=== PATIENT | female | born 1970 | race American Indian/Alaskan Native ===

== ENCOUNTER 2021-10-27 14:41 | Inpatient (IN) | payer OTHER ==
--- NOTE | 2021-10-27 14:49 | Emergency Department Report ---
ED General Adult HPI - General Stated complaint: POSS STROKE/GENERAL WEAKNESS Time Seen by Provider: 10/27/21 14:42 - History of Present Illness Initial comments: patient presents with complaints of sudden onset of weakness on her left side that made her fall. did not lose consciousness in the process. Now has facial droop also with the left saided weakness. Denies ZARATE. - Related Data Allergies Allergy/AdvReac Type Severity Reaction Status Date / Time No Known Allergies Allergy Verified 10/27/21 15:44 ED Review of Systems ROS: Stated complaint: POSS STROKE/GENERAL WEAKNESS Other details as noted in HPI Comment: All other systems reviewed and negative Constitutional: denies: chills, fever ED Past Medical Hx - Past Medical History Previous Medical History?: No ED Physical Exam - General General appearance: alert, in no apparent distress - Head Head exam: Present: atraumatic, normocephalic - Eye Eye exam: Present: PERRL, EOMI - ENT ENT exam: Present: mucous membranes moist, other (L facial asymmetry; airway patent) - Neck Neck exam: Present: other (supple; no JVD) - Respiratory Respiratory exam: Present: other (good air entry, nml I:E, CTAB, no use of MESFIN) - Cardiovascular Cardiovascular Exam: Present: regular rate. Absent: rubs, gallop - GI/Abdominal GI/Abdominal exam: Present: soft, normal bowel sounds. Absent: distended, tenderness - Extremities Exam Extremities exam: Present: full ROM. Absent: tenderness - Back Exam Back exam: Present: full ROM. Absent: tenderness - Neurological Exam Neurological exam: Present: alert, oriented X3, other (L CN VII palsy affecting only the lower face; motor 2/5 in LUE and 4/5 in LLE; NIH 6) - Skin Skin exam: Present: warm, normal color ED Course Vital Signs 10/27/21 10/27/21 10/27/21 14:41 15:35 15:39 Pulse Rate 100 H 100 H Respiratory 18 Rate Blood Pressure 151/70 Blood Pressure 168/98 [Right] O2 Sat by Pulse 100 100 Oximetry 10/27/21 10/27/21 10/27/21 15:40 15:55 16:10 Pulse Rate 102 H 99 H 105 H Respiratory 18 16 18 Rate Blood Pressure 148/75 148/80 Blood Pressure 151/79 161/79 143/86 [Right] O2 Sat by Pulse 98 18 L 98 Oximetry 10/27/21 10/27/21 10/27/21 16:25 16:40 16:55 Pulse Rate 98 H 100 H 97 H Respiratory 17 17 17 Rate Blood Pressure Blood Pressure 153/92 161/90 145/65 [Right] O2 Sat by Pulse 99 99 100 Oximetry 10/27/21 10/27/21 10/27/21 17:10 17:25 17:40 Pulse Rate 99 H 97 H 101 H Respiratory 18 17 18 Rate Blood Pressure Blood Pressure 135/86 141/78 154/75 [Right] O2 Sat by Pulse 99 99 99 Oximetry 10/27/21 10/27/21 17:55 18:00 Pulse Rate 99 H 98 H Respiratory 99 H 18 Rate Blood Pressure Blood Pressure 154/68 156/71 [Right] O2 Sat by Pulse 98 99 Oximetry - Reevaluation(s) Reevaluation #1: 10/27/21 17:14 Patient's weakness in L arm and leg resolved. L facial droop almost totally resolved. NIH only 1 for mild asymmetry in lower face on smiling. ED Medical Decision Making - Lab Data Result diagrams: 10/27/21 15:08 10/27/21 15:08 - Medical Decision Making Dr. Roger ([email or web address]) consulted. She agrees patient needs tPA. Patient received tPA. Critical care time in (mins) excluding proc time.: 50 Critical care attestation.: If time is entered above; I have spent that time in minutes in the direct care of this critically ill patient, excluding procedure time. ED Disposition Clinical Impression: Acute ischemic stroke Disposition: ADMITTED INPATIENT Is pt being admited?: Yes Does the pt Need Aspirin: No Condition: Stable Time of Disposition: 17:00 (Patient admitted to Dr. Daigle (sign out was given by me to the admitting physician))
[2021-10-27] MEDS ORDERED: ALTEPLASE 100 MG INJ KIT ONE (14:53)
[2021-10-27] MEDS ORDERED: ALTEPLASE 100 MG INJ KIT IV ONE ×2 (15:10→15:45)
[2021-10-27] MEDS ORDERED: SODIUM CHLORIDE 0.9% 50 ML IVPB IV ONE (15:10)
--- NOTE | 2021-10-27 15:20 | Cat Scan Report ---
CT HEAD WITHOUT CONTRAST INDICATION / CLINICAL INFORMATION: stroke. Left facial droop. TECHNIQUE: Axial imaging performed from the skull apex through the skull base without the use of cont rast. Sagittal and coronal reformatted images. All CT scans at this location are performed using CT dose reduction for ALARA by means of automated exposure control. COMPARISON: None available. FINDINGS: CEREBRAL PARENCHYMA: No significant abnormality. No acute territorial infarct. HEMORRHAGE: None. EXTRA-AXIAL SPACES: Normal in size and morphology for the patient's age. VENTRICULAR SYSTEM: Normal in size and morphology for the patient's age. MIDLINE SHIFT OR HERNIATION: None. CEREBELLUM / BRAINSTEM: No significant abnormality. CALVARIUM: No significant abnormality. ORBITS: Normal as visualized. PARANASAL SINUSES / MASTOID AIR CELLS: There appears to be an ectopic 2 cysts in the left maxillary s inus which is partially imaged. Otherwise the sinuses are clear. SOFT TISSUES of HEAD: No significant abnormality. ADDITIONAL FINDINGS: None. IMPRESSION: No acute intracranial abnormality. No evidence for hemorrhage or large area of acute ischemia this ti me. Ectopic tooth in the left maxillary sinus which is partially imaged. CODE STROKE: Time of Communication (LIFE SCIENCE RESEARCH ASSISTANT/CDT): 1410 hours Licensed Practitioner Receiving Report: Dr. Santillan Signer Name: Kory Coates Jr, MD Signed: 10/27/2021 3:15 PM Workstation Name: [id number]
--- NOTE | 2021-10-27 15:37 | Cat Scan Report ---
CTA head with intravenous contrast CLINICAL HISTORY: stroke TECHNIQUE: 0.625 mm thick contiguous axial scans were obtained from the skull base to the skull vertex during r apid bolus administration of intravenous contrast material. Multiplanar reconstructions were produced in the coronal and sagittal planes. In addition 3 plane MIP instructions were produced and reviewed for this report. The axial source images and reconstructed images were reviewed for this report. CONTRAST DOSE REPORT: Omnipaque 350: 100 ml administered intravenously. All CT scans at this location are performed using CT dose reduction for ALARA by means of automated e xposure control. FINDINGS: Internal carotid arteries:Renzo, cavernous, opthalmic, clinoid and supraclinoid segments of the ICAs have an unremarkable appearance. Middle cerebral arteries:Normal and symmetrical M1 segments of the middle cerebral arteries are demon strated. No abnormalities are seen on evaluation of the insular or opercular branches. Anterior cerebral arteries:Bilaterally symmetrical A1 segments are demonstrated. No abnormalities are seen along the course of the A2 segments or their visualized pericallosal branches. An anterior comm unicating artery is not identified. Vertebral arteries:Bilaterally symmetrical vertebral arteries are demonstrated. Both vertebral arteri es contribute to the basilar artery origin. Basilar artery:Basilar artery has an unremarkable appearance. Posterior cerebral arteries:Bilaterally symmetrical posterior cerebral arteries are identified. Smal l bilateral posterior communicating arteries are observed. [place] of Power:Not intact. see above. Dural sinuses: Dural venous sinuses are well demonstrated on this exam. There is no evidence of dural sinus thrombosis. IMPRESSION: 1. No indication of intercranial stenosis or large vessel occlusion. CTA neck without and with intravenous contrast material CLINICAL HISTORY: stroke TECHNIQUE: Following acquisition of a timing bolus 0.625 mm thick contiguous axial scans were obtained from aort ic arch to the skull base during rapid bolus intravenous contrast infusion. In addition to evaluation of axial source images multiplanar reconstructions were produced and reviewed for this report. 3 edmond ne MIP reconstructions were produced and reviewed. Contrast dose report: Omnipaque 300: 100 ml, administered intravenously All CT examinations performed at this facility utilize modulated dose reduction, iterative reconstruc tion or weight-based dosing, as appropriate, to obtain a radiation dose which is as low as can reason ably be achieved. FINDINGS: Thoracic aorta:No abnormalities are identified along the course of the thoracic aorta..The origins of the great vessels have an unremarkable appearance. Brachiocephalic artery, left common carotid arter y origin and left subclavian artery all have an unremarkable appearance. Right carotid artery: There is a thin, web like abnormality projecting into the posterior aspect of t he right carotid bulb. This is associated with a short segment 50% stenosis based on NASCET like crit eria. Right common carotid artery and cervical portions of the right internal carotid artery have a n ormal appearance. Left carotid artery: No abnormalities are noted along the course of the left common carotid artery, a t the left carotid bifurcation or along the course of the cervical segments of the LICA. Posterior circulation:The vertebral arteries have an unremarkable appearance. Both vertebral arteries contribute to the basilar artery origin. The basilar artery has an unremarkable appearance. The degree of stenosis, if any, is determined utilizing NASCET like criteria. In this case there is a short segment 50% stenosis at the right carotid bulb. The laryngeal airway is narrowed from about the level of the inferior margin of the hyoid bone to the level of the false cords. This could be secondary to supraglottitis. Correlation with clinical asses sment of the adequacy of the patient's airway is advised. Additionally noted is asymmetry of the piri form sinuses with effacement of the left piriform sinus. Correlation with ENT evaluation is suggested . Evaluation of the nonvascular soft tissue structures reveal no additional abnormality. There is no in dication of cervical lymphadenopathy. Visualized portions of the parotid glands and the submandibular salivary glands have a normal appearance. Thyroid gland has a normal appearance. Evaluation of the l silverio apices reveals no evidence of lung nodule or infiltrate. Evaluation of the cervical spine revealed no significant abnormalities. IMPRESSION: 1. Short segment weblike stenosis at the right carotid bulb where a 50% narrowing is observed based o n NASCET like criteria. 2. Laryngeal airway appears narrowed from the inferior margin of the hyoid bone to the level of the f alse cords. Clinical assessment regarding the adequacy of the patient's airway is advised. Signer Name: Rigoberto Johnson MD Signed: 10/27/2021 3:32 PM Workstation Name: [id number]
[2021-10-27 15:46] LABS: Hematocrit 42.6 % (30.3-42.9); Hemoglobin 13.9 gm/dl (10.1-14.3); Mean Corpuscular HGB Conc 33 % (30-34); Mean Corpuscular Volume 90 fl (79-97); Platelet Count 454 K/mm3 (140-440); Red Blood Count 4.74 M/mm3 (3.65-5.03); Red Cell Distribution Width 13.9 % (13.2-15.2)
[2021-10-27 15:53] LABS: Basophils # (Auto) 0.1 K/mm3 (0.0-0.1); Basophils % (Auto) 0.9 % (0.0-1.8); Eosinophils # (Auto) 0.1 K/mm3 (0.0-0.4); Eosinophils % (Auto) 0.5 % (0.0-4.3); Lymphocytes # (Auto) 3.5 K/mm3 (1.2-5.4); Monocytes # (Auto) 0.9 K/mm3 (0.0-0.8); Monocytes % (Auto) 7.9 % (0.0-7.3)
[2021-10-27 15:54] LABS: INR 1.1 (0.87-1.13)
[2021-10-27 15:55] LABS: Partial Thromboplastin Time 29.7 Sec. (24.2-36.6)
--- NOTE | 2021-10-27 17:16 | XRay Report ---
CHEST 1 VIEW 10/27/2021 4:55 PM INDICATION / CLINICAL INFORMATION: stroke. COMPARISON: None available. FINDINGS: SUPPORT DEVICES: None. HEART / MEDIASTINUM: No significant abnormality. LUNGS / PLEURA: No significant pulmonary or pleural abnormality. No pneumothorax. ADDITIONAL FINDINGS: No significant additional findings. IMPRESSION: 1. No acute findings. Signer Name: Edwar Mcmahon DO Signed: 10/27/2021 5:11 PM Workstation Name: [id number]
[2021-10-27 17:44] LABS: Alanine Aminotransferase 8 units/L (7-56); Albumin 4.3 g/dL (3.9-5); Blood Urea Nitrogen 13 mg/dL (7-17); Calcium 9.3 mg/dL (8.4-10.2); Hemolysis Index 194
[2021-10-27 17:48] LABS: BUN/Creatinine Ratio 19
--- NOTE | 2021-10-27 18:13 | Emergency Department Report ---
Blank Doc - Documentation Documentation: [facility] Consult Note # Demographics Consult Type: Acute Stroke Level 1 (0-4.5 hrs) Patient Location: Emergency Room First Name: Arlene Last Name: Danial Date of : 1970 Age: 51 Gender: Female Facility: [facility] Time of Initial Page ( Time): 10/27/2021, 14:38 Time of Return Call ( Time): 10/27/2021, 14:38 # HPI History: 1345 fell, having left sided weakness Possible Thrombolytic candidate: not on warfarin or NOACs no intracranial hemorrhage history no recent major surgery no known active major internal bleeding no known blood disorders # Scores Time of exam and NIHSS (): 10/27/2021, 14:38 Level of Consciousness 1a: [0] = Alert; keenly responsive LOC Questions 1b: [0] = Answers both questions correctly LOC Commands 1c: [0] = Performs both tasks correctly Best Gaze 2: [0] = Normal Visual 3: [0] = No visual loss Facial Palsy 4: [2] = Partial paralysis Motor Arm Left 5a: [4] = No movement Motor Arm Right 5b: [0] = No drift Motor Leg Left 6a: [1] = Drift Motor Leg Right 6b: [0] = No drift Limb Ataxia 7: [0] = Absent Sensory 8: [0] = Normal Best Language 9: [0] = No aphasia Dysarthria 10: [0] = Normal Extinction and Inattention 11: [0] = No abnormality NIHSS Total: 7 # PMH-FH-SH Past Medical History: denies Medications: denies # Data Head CT: no bleed preliminary read # Assessment Impression: Ischemic Stroke (Acute) # Plan Thrombolytic/Intervention: IV thrombolytic and possible IA candidate Possible IA Candidate: signs and symptoms of LVO CTA pending Time IV Thrombolytic Recommended (): 10/27/2021, 14:42 Blood Pressure Management: nicardipine labetolol Target Blood Pressure: SBP < 180 DBP < 105 Labs: hemoglobin A1c lipid panel Imaging: (urgency: STAT): CT Angiogram Head and CT Angiogram Neck AND call back with results if abnormal Imaging: (urgency: routine): MRI Brain without contrast Diagnostic Test: echo without bubble study Therapy/Evaluation: NPO until swallow evaluation PT/OT evaluation speech/swallow consultation Medication: start statin with goal of LDL < 70 DVT Prophylaxis: SCD Thrombolytic Administration Recommendations: I reviewed the risks/benefits/alternatives of IV thrombolytic therapy with the p atient. They understand there is potential of life threatening hemorrhage from IV thrombolysis. I stated that I believe benefits outweighs risk. They wish to proceed with IV thrombolytic therapy. I have collected independent history specific to time last normal or last known well. We have collaborated with the ED provider and at this time, we have the most current timeline with the information that is available. BP goal< 180/105 for 24hrs post Thrombolytic administration Use Labetolol 10-20mg IV prn or Nicardipine gtt to maintain BP parameters No antiplatelets or anticoagulants for next 24 hrs unless indicated for emergent IA procedure or other life threatening situation ICU admission Call back if there is any decline in neurological condition The patient provided verbal consent to treatment with thrombolytics after the above was discussed. Witnesses to this conversation were Other: LDL < 70 If patient has any neurological deterioration please call me back immediately permissive hypertension telemetry monitoring I have discussed my recommendations with the referring provider Disposition: admit # Logistics Telemedicine: Interactive 2 way audio and visual telecommunication technology was utilized during this visit
[2021-10-27] MEDS ORDERED: MORPHINE 2 MG/1 ML INJ IV PRN (23:38)
[2021-10-27] MEDS ORDERED: ONDANSETRON 4 MG/2 ML INJ IV PRN (23:38)
[2021-10-27] MEDS ORDERED: oxyCODONE /ACETAMINOPHEN 5-325MG TAB PO PRN (23:38)
[2021-10-27] MEDS ORDERED: ACETAMINOPHEN 325 MG TAB PO PRN (23:38)
[2021-10-27] MEDS ORDERED: METOCLOPRAMIDE 10 MG/2 ML INJ IV PRN (23:38)
--- NOTE | 2021-10-27 23:38 | History and Physical Report ---
History of Present Illness Date of examination: 10/27/21 Date of admission: 10/27/2021 Chief complaint: Left-sided weakness for 1-1/2-hour History of present illness: 51-year-old -[place] female with no significant past medical history comes in for left-sided acute onset weakness for the last 1-1/2 hours. Not able to move her left upper extremity and left lower extremity. Also has facial droop and dysarthria. No nasal regurgitation of fluids. No ataxia. Unable to walk because of the left-sided weakness. Code stroke was initiated. tPA was given in the emergency room. Because of the patient being within the time. Post tPA patient had remarkable improvement with resolution of weakness in the left upper extremity and left lower extremity. Slight weakness present. - Past Medical History --Previous Medical History?: No - past surgical history -- No -family history - -No social history --No Review of Systems ROS: Stated complaint: POSS STROKE/GENERAL WEAKNESS Other details as noted in HPI Comment: All other systems reviewed and negative Constitutional: denies: chills, fever Medications and Allergies Allergies Allergy/AdvReac Type Severity Reaction Status Date / Time No Known Allergies Allergy Verified 10/27/21 15:44 Exam - Constitutional Vitals: Temp Pulse Resp BP Pulse Ox 98 H 18 111/72 100 10/27/21 19:00 10/27/21 19:00 10/27/21 19:00 10/27/21 19:00 General appearance: Present: no acute distress, well-nourished - EENT Eyes: Present: PERRL ENT: hearing intact, clear oral mucosa - Neck Neck: Present: supple, normal ROM - Respiratory Respiratory effort: normal Respiratory: bilateral: CTA - Cardiovascular Heart rate: 78 Rhythm: regular Heart Sounds: Present: S1 & S2. Absent: rub, click - Extremities Extremities: pulses symmetrical, No edema Peripheral Pulses: within normal limits - Abdominal General gastrointestinal: Present: soft, non-tender, non-distended, normal bowel sounds Female genitourinary: Present: normal - Integumentary Integumentary: Present: clear, warm, dry - Musculoskeletal Musculoskeletal: gait normal, strength equal bilaterally - Psychiatric Psychiatric: appropriate mood/affect, intact judgment & insight - Neurologic Neurologic: CNII-XII intact, focal deficits (Left hemiplegia which is improved), moves all extremities, gait normal (Could not walk initially, patient may be able to walk out of the clinic. On resolution of symptoms) - Allied Health Allied health notes reviewed: nursing, case management HEART Score - HEART Score History: Slightly suspicious Age: 45-65 Risk factors: No known risk factors Troponin: Troponin T < 0.010 ng/mL (0.00-0.029) 10/27/21 15:08 Troponin: < normal limit - Critical Actions Critical Actions: 0-3 pts:0.9-1.7%risk of adverse cardiac event.Candidate for discharge Results - Labs CBC & Chem 7: 10/28/21 04:05 10/28/21 04:05 Labs: Laboratory Last Values WBC 11.4 K/mm3 (4.5-11.0) H 10/27/21 15:08 RBC 4.74 M/mm3 (3.65-5.03) 10/27/21 15:08 Hgb 13.9 gm/dl (10.1-14.3) 10/27/21 15:08 Hct 42.6 % (30.3-42.9) 10/27/21 15:08 MCV 90 fl (79-97) 10/27/21 15:08 MCH 29 pg (28-32) 10/27/21 15:08 MCHC 33 % (30-34) 10/27/21 15:08 RDW 13.9 % (13.2-15.2) 10/27/21 15:08 Plt Count 454 K/mm3 (140-440) H 10/27/21 15:08 Lymph % (Auto) 30.0 % (13.4-35.0) 10/27/21 15:08 [place] % (Auto) 7.9 % (0.0-7.3) H 10/27/21 15:08 Eos % (Auto) 0.5 % (0.0-4.3) 10/27/21 15:08 Baso % (Auto) 0.9 % (0.0-1.8) 10/27/21 15:08 Lymph # (Auto) 3.5 K/mm3 (1.2-5.4) 10/27/21 15:08 [place] # (Auto) 0.9 K/mm3 (0.0-0.8) H 10/27/21 15:08 Eos # (Auto) 0.1 K/mm3 (0.0-0.4) 10/27/21 15:08 Baso # (Auto) 0.1 K/mm3 (0.0-0.1) 10/27/21 15:08 Seg Neutrophils % 60.7 % (40.0-70.0) 10/27/21 15:08 Seg Neutrophils # 7.2 K/mm3 (1.8-7.7) 10/27/21 15:08 PT 15.5 Sec. (12.2-14.9) H 10/27/21 15:08 INR 1.10 (0.87-1.13) 10/27/21 15:08 APTT 29.7 Sec. (24.2-36.6) 10/27/21 15:08 Sodium 133 mmol/L (137-145) L 10/27/21 15:08 Potassium 4.9 mmol/L (3.6-5.0) 10/27/21 15:08 Chloride 97.8 mmol/L (98-107) L 10/27/21 15:08 Carbon Dioxide 13 mmol/L (22-30) L 10/27/21 15:08 Anion Gap 27 mmol/L 10/27/21 15:08 BUN 13 mg/dL (7-17) 10/27/21 15:08 Creatinine 0.7 mg/dL (0.6-1.2) 10/27/21 15:08 Estimated GFR > 60 ml/min 10/27/21 15:08 BUN/Creatinine Ratio 19 % 10/27/21 15:08 Glucose 88 mg/dL (65-100) 10/27/21 15:08 Calcium 9.3 mg/dL (8.4-10.2) 10/27/21 15:08 Total Bilirubin 0.40 mg/dL (0.1-1.2) 10/27/21 15:08 AST 24 units/L (5-40) 10/27/21 15:08 ALT 8 units/L (7-56) 10/27/21 15:08 Alkaline Phosphatase 101 units/L (35-129) 10/27/21 15:08 Troponin T < 0.010 ng/mL (0.00-0.029) 10/27/21 15:08 Total Protein 7.4 g/dL (6.3-8.2) 10/27/21 15:08 Albumin 4.3 g/dL (3.9-5) 10/27/21 15:08 Albumin/Globulin Ratio 1.4 % 10/27/21 15:08 HCG, Qual Negative (Negative) 10/27/21 15:08 Short CBC 10/27/21 Range/Units 15:08 WBC 11.4 H (4.5-11.0) K/mm3 Hgb 13.9 (10.1-14.3) gm/dl Hct 42.6 (30.3-42.9) % Plt Count 454 H (140-440) K/mm3 [facility] 10/27/21 15:08 Sodium 133 L Potassium 4.9 Chloride 97.8 L Carbon Dioxide 13 L BUN 13 Creatinine 0.7 Glucose 88 Calcium 9.3 Cardiac Enzymes 10/27/21 Range/Units 15:08 Troponin T < 0.010 (0.00-0.029) ng/mL Liver Function 10/27/21 Range/Units 15:08 Total Bilirubin 0.40 (0.1-1.2) mg/dL AST 24 (5-40) units/L ALT 8 (7-56) units/L Alkaline Phosphatase 101 (35-129) units/L Albumin 4.3 (3.9-5) g/dL Short CBC 10/27/21 10/28/21 Range/Units 15:08 04:05 WBC 11.4 H 12.9 H (4.5-11.0) K/mm3 Hgb 13.9 14.0 (10.1-14.3) gm/dl Hct 42.6 42.0 (30.3-42.9) % Plt Count 454 H 434 (140-440) K/mm3 [facility] 10/27/21 10/28/21 15:08 04:05 Sodium 133 L 135 L Potassium 4.9 3.9 D Chloride 97.8 L 102.1 Carbon Dioxide 13 L 19 L BUN 13 10 Creatinine 0.7 0.6 Glucose 88 89 Calcium 9.3 9.2 Cardiac Enzymes 10/27/21 Range/Units 15:08 Troponin T < 0.010 (0.00-0.029) ng/mL Liver Function 10/27/21 10/28/21 Range/Units 15:08 04:05 Total Bilirubin 0.40 0.40 (0.1-1.2) mg/dL AST 24 14 (5-40) units/L ALT 8 7 (7-56) units/L Alkaline Phosphatase 101 102 (35-129) units/L Albumin 4.3 4.4 (3.9-5) g/dL - Imaging and Cardiology EKG: report reviewed (Sinus rhythm no acute ST-T wave changes) CT Scan - head: report reviewed Imaging and Cardiology: 10/27/[address] No acute intracranial abnormalities No evidence for hemorrhage or areas of acute ischemia . Head CTA Short segment valvular stenosis of the right carotid bulb. 50% is 0 Laryngeal area. Inferior margin of the abdomen to the level of the false cords. Clinical assessment regarding the adequacy reviewed. Airway is advised. Next Neck CTA Short segment weblike stenosis of the right carotid bulb with 50% narrowing resolved. Assessment and Plan Advance Directives: Yes (Full code) VTE prophylaxis?: Chemical Plan of care discussed with patient/family: Yes - Patient Problems (1) Acute CVA (cerebrovascular accident) Current Visit: Yes Status: Acute Plan to address problem: Patient with acute left-sided weakness for 1 hour and 4 hours prior to admission Code stroke was initiated Patient was given tPA Near resolution of hemiplegia Dramatic response to IV tPA Admission to ICU for observation because the patient is a tPA candidate CVA protocol MRI of the brain and echocardiogram requested Neck CTA and head CT were done No need for MRA or carotid duplex scan Neurology consult requested Patient to be started on aspirin from tomorrow after 48 hours (2) Hyperlipidemia Current Visit: Yes Status: Chronic Qualifiers: Hyperlipidemia type: mixed hyperlipidemia Qualified Code(s): E78.2 - Mixed hyperlipidemia Plan to address problem: High intensity statin started (3) DVT prophylaxis Current Visit: Yes Status: Acute Plan to address problem: On anticoagulation GI prophylaxis (4) Advance care planning Current Visit: Yes Status: Acute Plan to address problem: Disease education conducted, care plan discussed, diagnosis discussed, prognosis discussed. Patient is full code. Patient acknowledged understanding and agreement with care plan. +30 minutes.
[2021-10-27] MEDS ORDERED: SODIUM CHLORIDE 0.9% 1000 ML 1,000 ML IV SCH (23:45)
[2021-10-28 05:02] LABS: Basophils # (Auto) 0.1 K/mm3 (0.0-0.1); Basophils % (Auto) 0.5 % (0.0-1.8); Eosinophils # (Auto) 0.1 K/mm3 (0.0-0.4); Eosinophils % (Auto) 0.8 % (0.0-4.3); Lymphocytes # (Auto) 3.1 K/mm3 (1.2-5.4); Mean Corpuscular HGB Conc 33 % (30-34); Mean Corpuscular Volume 88 fl (79-97); Monocytes % (Auto) 8.1 % (0.0-7.3); Platelet Count 434 K/mm3 (140-440); Red Blood Count 4.78 M/mm3 (3.65-5.03); Red Cell Distribution Width 13.8 % (13.2-15.2)
[2021-10-28 05:19] LABS: Alanine Aminotransferase 7 units/L (7-56); Albumin 4.4 g/dL (3.9-5); Blood Urea Nitrogen 10 mg/dL (7-17); Calcium 9.2 mg/dL (8.4-10.2); Hemolysis Index 2
[2021-10-28 05:36] LABS: BUN/Creatinine Ratio 17
[2021-10-28] MEDS: HEPARIN 5,000 UNIT/1 ML VIAL SUB-Q SCH ×2 (09:27→23:17)
[2021-10-28] MEDS: FAMOTIDINE 20 MG TAB PO SCH ×2 (09:28→23:17)
--- NOTE | 2021-10-28 10:09 | Electrocardiograph Report ---
[facility] Test Date: 2021-10-27 Test Time: 15:04:26 Pat Name: GLENN NIEVES Department: Room: A261 1 Gender: F Facer Operator: CHRISTIANO : 1970 Requested By: APOLLO ROSS Order Number: [id number] Reading MD: Manuel Thurman Measurements Intervals [place] Rate: 100 P: 61 NH: 144 QRS: 64 QRSD: 87 T: 51 QT: 362 QTc: 467 Interpretive Statements Sinus tachycardia No previous ECG available for comparison Electronically Signed On 10-28-2021 10:09:19 EDT by Manuel Thurman
--- NOTE | 2021-10-28 13:26 | Consultation ---
History of Present Illness - Reason for Consult Consult date: 10/28/21 Post TPA management - History of Present Illness 51 y/o female presented to ED on yesterday with acute on set of left sided weakness that made her fall. Patient brought to ED and deemed a suitable candidate for TPA. Post TPA, resolution of all symptoms within hours. Transferred to ICU for post TPA care. Past History Past Medical History: GERD Medications and Allergies Allergies Allergy/AdvReac Type Severity Reaction Status Date / Time No Known Allergies Allergy Verified 10/27/21 15:44 Home Medications Medication Instructions Recorded Confirmed Last Taken Type Omeprazole 10 mg PO DAILY PRN 10/28/21 10/28/21 Unknown History Active Meds: Active Medications Acetaminophen (Acetaminophen 325 Mg Tab) 650 mg PO Q4H PRN PRN Reason: Pain MILD(1-3)/Fever >100.5/ZARATE Aspirin (Aspirin 325 Mg Tab) 325 mg PO QDAY [facility] Atorvastatin Calcium (Atorvastatin 40 Mg Tab) 40 mg PO QHS [facility] Famotidine (Famotidine 20 Mg Tab) 20 mg PO BID [facility] Last Admin: 10/28/21 09:28 Dose: 20 mg Heparin Sodium (Porcine) (Heparin 5,000 Unit/1 Ml Vial) 5,000 unit SUB-Q Q12HR [facility] Last Admin: 10/28/21 09:27 Dose: 5,000 unit Hydromorphone HCl (Hydromorphone 0.5 Mg/0.5 Ml Inj) 0.5 mg IV Q3H PRN PRN Reason: Pain , Severe (7-10) Metoclopramide HCl (Metoclopramide 10 Mg/2 Ml Inj) 10 mg IV Q6H PRN PRN Reason: Nausea And Vomiting Morphine Sulfate (Morphine 2 Mg/1 Ml Inj) 2 mg IV Q4H PRN PRN Reason: Pain, Moderate (4-6) Ondansetron HCl (Ondansetron 4 Mg/2 Ml Inj) 4 mg IV Q8H PRN PRN Reason: Nausea And Vomiting Oxycodone/Acetaminophen (Oxycodone /Acetaminophen 5-325mg Tab) 1 tab PO Q6H PRN PRN Reason: Pain, Moderate (4-6) Sodium Chloride (Sodium Chloride 0.9% 10 Ml Flush Syringe) 10 ml IV BID [facility] Last Admin: 10/28/21 09:27 Dose: 10 ml Sodium Chloride (Sodium Chloride 0.9% 10 Ml Flush Syringe) 10 ml IV PRN PRN PRN Reason: LINE FLUSH Review of Systems All systems: negative Exam - Constitutional Vitals: Temp Pulse Resp BP Pulse Ox 97.6 F 82 19 119/78 99 10/28/21 04:00 10/28/21 12:00 10/28/21 12:00 10/28/21 12:00 10/28/21 12:00 General appearance: Present: no acute distress - EENT Eyes: Present: PERRL, EOM intact ENT: hearing intact, clear oral mucosa - Neck Neck: Present: supple, normal ROM - Respiratory Respiratory effort: normal Respiratory: bilateral: CTA Results - Labs CBC & Chem 7: 10/28/21 04:05 10/28/21 04:05 Labs: Abnormal lab results 10/27/21 10/27/21 10/27/21 Range/Units 15:08 15:08 15:08 WBC 11.4 H (4.5-11.0) K/mm3 Plt Count 454 H (140-440) K/mm3 [place] % (Auto) 7.9 H (0.0-7.3) % [place] # (Auto) 0.9 H (0.0-0.8) K/mm3 Seg Neutrophils # (1.8-7.7) K/mm3 PT 15.5 H (12.2-14.9) Sec. Sodium 133 L (137-145) mmol/L Chloride 97.8 L (98-107) mmol/L Carbon Dioxide 13 L (22-30) mmol/L 10/28/21 10/28/21 Range/Units 04:05 04:05 WBC 12.9 H (4.5-11.0) K/mm3 Plt Count (140-440) K/mm3 Daw[place] % (Auto) 8.1 H (0.0-7.3) % [place] # (Auto) 1.0 H (0.0-0.8) K/mm3 Seg Neutrophils # 8.6 H (1.8-7.7) K/mm3 PT (12.2-14.9) Sec. Sodium 135 L (137-145) mmol/L Chloride (98-107) mmol/L Carbon Dioxide 19 L (22-30) mmol/L - Imaging and Cardiology Chest x-ray: image reviewed CT Scan - head: report reviewed Assessment and Plan 51 y/o female with acute stroke, status post TPA, with resolution of presenting symptoms 1. Monitor for 24 hours post TPA admin 2. q1 hour neuro checks 3. BP control 4. Anticoagulation at the 24 hour caleb and transfer to floor 5. Will sign off once transferred out.
--- NOTE | 2021-10-28 13:51 | Magnetic Resonance Report ---
MR brain wo con INDICATION / CLINICAL INFORMATION: 51 years Female; stroke, LT LEG WEAKNESS. TECHNIQUE: Multiplanar, multisequence MR images of the brain were obtained. COMPARISON: None available. FINDINGS: BRAIN / INTRACRANIAL CONTENTS: There is a patchy areas of acute infarction is evident involving the c ortical regions of the right frontal lobe including the operculum as well as the superior right insul a. Smaller foci are also seen along the more superior right frontal and parietal cortex. The findings would be within the MCA distribution. On the FLAIR sequence, there are otherwise scattered small hyperintense foci involving the remaining cerebral white matter most consistent with microvascular angiopathy. The above the findings at. Resul t in mild degree of mass effect with sulcal effacement and mild mass effect upon the right lateral ve ntricle. Otherwise, the ventricular system appears unremarkable. CRANIOCERVICAL JUNCTION: No significant abnormality. VASCULAR FLOW-VOIDS: No significant abnormality. ORBITS: No significant abnormality of visualized orbits. SINUSES / MASTOIDS: No significant abnormality in the visualized paranasal sinuses or mastoid air angy ls. ADDITIONAL FINDINGS: None. IMPRESSION: 1. There are patchy areas of acute infarct involving right frontoparietal cortical regions as detaile d above. There is also component involving superior right insula. Signer Name: John Kearney MD Signed: 10/28/2021 1:47 PM Workstation Name: [email or web address]
--- NOTE | 2021-10-28 14:50 | Vascular Lab Report ---
DUPLEX DOPPLER ULTRASOUND CAROTID, BILATERAL INDICATION / CLINICAL INFORMATION: stroke. COMPARISON: CTA neck performed yesterday. FINDINGS: RIGHT CAROTID: Minimal atherosclerotic plaque. - PLAQUE ESTIMATE (%): < 50% - CCA velocity: 104 cm/sec. - ICA peak systolic velocity: 93 cm/sec. - ICA/CCA PSV Ratio: Less than 2. Right Vertebral Artery: Antegrade flow. LEFT CAROTID: No significant atherosclerotic plaque. - PLAQUE ESTIMATE (%): None. - CCA velocity: 87 cm/sec. - ICA peak systolic velocity: 87 cm/sec. - ICA/CCA PSV Ratio: 1.0 Left Vertebral Artery: Antegrade flow. IMPRESSION: Technically limited exam. 1. Right Internal Carotid Artery: Less than 50% diameter stenosis. 2. Left Internal Carotid Artery: Less than 50% diameter stenosis. Velocity criteria are extrapolated from diameter data as defined by the Society of Radiologists in [facility] Consensus Conference, Radiology 2003; 229;340-346. NO STENOSIS (NORMAL) - Plaque = none; ICA PSV < 125 cm/sec; ICA/CCA PSV Ratio < 2.0 <50% STENOSIS - Plaque < 50%; ICA PSV < 125 cm/sec; ICA/CCA PSV Ratio < 2.0 50-69% STENOSIS - Plaque > 50%; ICA PSV = 125-230 cm/sec; ICA/CCA PSV Ratio = 2.0-4.0 >70% BUT <100% STENOSIS - Plaque > 50%; ICA PSV > 230 cm/sec; ICA/CCA PSV Ratio > 4.0 NEAR OCCLUSION - Plaque = visible lumen; ICA PSV = high/low/none; ICA/CCA PSV Ratio = variable TOTAL OCCLUSION - Plaque = no lumen; ICA PSV = none; ICA/CCA PSV Ratio = N/A Scribed by: Kristy Boyer RDMS, RVT, RMSKS Scribed: 10/28/2021 1:44 PM I have reviewed the images, agree with this report, and edited this report as needed. Signer Name: Gal Griffin MD Signed: 10/28/2021 2:45 PM Workstation Name: [id number]
--- NOTE | 2021-10-28 16:34 | Progress Note ---
Assessment and Plan Assessment and plan: This is a 51-year-old female with with HLD admitted with CVA s/p tPA Neuro: Acute CVA -Neurology consulted, appreciate recommendations -Avoid delirium -Reorientation as needed -Maintain sleep-wake cycle -aspiration/seizure precautions -As needed analgesia -Initial CT head showed no acute intracranial abnormality, no evidence of hemorrhage or large area of acute ischemia at this time -CTA head/neck shows short segment weblike stenosis of the right carotid bulb with a 50% narrowing is observed based on NASCET criteria, laryngeal area appears narrowed from the inferior margin of the hyoid bone to the level of the false cord -Carotid Doppler ultrasound showed less than 50% diameter stenosis in the bilateral internal carotid artery -S/p tPA -CCM consulted, patient recommendations -MRI brain shows patchy areas of acute infarct involving right frontoparietal cortical regions, component involving superior right insula -Lipid panel noted -Statin therapy -Initiate aspirin therapy if repeat CT head shows no hemorrhage -Goal blood pressure less than 160/90 -Neurochecks per protocol -PT/OT/ST consults -Avoid hypoglycemia, maintain normothermia Cardiac: Hyperlipidemia -Blood pressure monitoring per protocol -Statin -Echocardiogram pending Respiratory: NAD -Supplemental oxygen as needed -Pulmonary hygiene -SPO2 monitoring GI: Obesity -24 hours fluid balance time recorded -PPI -Speech cleared for mechanical soft diet -BR: Colace : Hyponatremia, metabolic acidosis -Strict intake and output -Renally dose medications -Avoid nephrotoxic medications -Trend BMP ID: NAD -f/u blood culture -Monitor WBC and temperature curve Endo: NAD -Avoid hypoglycemia Heme: Leukocytosis -Trend CBC -Transfuse hemoglobin less than 7 -Monitor for signs of bleeding -SCDs to BLE while in bed -Avoid chemical anticoagulation in setting of recent tPA administration -Start aspirin 24 hours post tPA if CT head negative The high probability of a clinically significant, sudden or life threatening deterioration of the [neuro] system(s) required my full and direct attention, intervention and personal management. The aggregate critical care time was [60] minutes. This time is in addition to time spent performing reported procedures but includes the following: [x] Data Review and interpretation [x] Patient assessment and monitoring of vital signs [x] Documentation [x] Medication orders and management Disposition Plan: transfer to floor Total Time Spent with Patient (Minutes): 60 History Interval history: This is a 51-year-old female with no past medical history presented to emergency department on 10/27 with left-sided weakness for 1 and half hours prior to presentation, inability to walk. Code stroke was initiated in the emergency department and telemetry neurology was consulted who recommended tPA. Patient admitted to ICU with consults to [facility] for 24-hour observation after tPA administration. Hospital course to date: 10/28: MRI brain completed, still with left-sided weakness, CT head scheduled for approximately 3:[address] head patient will be transferred to the floor and initiated on aspirin if no hemorrhage is present. Hospitalist Physical - Constitutional Vitals: Temp Pulse Resp BP Pulse Ox 98.5 F 85 17 112/73 98 10/28/21 12:00 10/28/21 15:00 10/28/21 15:00 10/28/21 15:00 10/28/21 15:00 General appearance: Present: no acute distress - EENT Eyes: Present: PERRL, EOM intact ENT: hearing intact, clear oral mucosa, dentition normal - Neck Neck: Present: normal ROM - Respiratory Respiratory effort: normal Respiratory: bilateral: CTA, diminished - Cardiovascular Rhythm: regular Heart Sounds: Present: S1 & S2. Absent: systolic murmur, diastolic murmur - Extremities Extremities: no ischemia, pulses intact, pulses symmetrical, normal temperature, normal color Peripheral Pulses: within normal limits - Abdominal General gastrointestinal: soft, non-tender, non-distended, normal bowel sounds - Psychiatric Psychiatric: appropriate mood/affect, cooperative - Neurologic Neurologic: focal deficits (Left sided weakness with facial droop) - Allied Health Allied health notes reviewed: nursing, PT, ST, OT, social work HEART Score - HEART Score Age: 45-65 Risk factors: No known risk factors Troponin: Troponin T < 0.010 ng/mL (0.00-0.029) 10/27/21 15:08 Troponin: < normal limit - Critical Actions Critical Actions: 0-3 pts:0.9-1.7%risk of adverse cardiac event.Candidate for discharge Results - Labs CBC & Chem 7: 10/28/21 04:05 10/28/21 04:05 Labs: Laboratory Last Values WBC 12.9 K/mm3 (4.5-11.0) H 10/28/21 04:05 RBC 4.78 M/mm3 (3.65-5.03) 10/28/21 04:05 Hgb 14.0 gm/dl (10.1-14.3) 10/28/21 04:05 Hct 42.0 % (30.3-42.9) 10/28/21 04:05 MCV 88 fl (79-97) 10/28/21 04:05 MCH 29 pg (28-32) 10/28/21 04:05 MCHC 33 % (30-34) 10/28/21 04:05 RDW 13.8 % (13.2-15.2) 10/28/21 04:05 Plt Count 434 K/mm3 (140-440) 10/28/21 04:05 Lymph % (Auto) 24.0 % (13.4-35.0) 10/28/21 04:05 [place] % (Auto) 8.1 % (0.0-7.3) H 10/28/21 04:05 Eos % (Auto) 0.8 % (0.0-4.3) 10/28/21 04:05 Baso % (Auto) 0.5 % (0.0-1.8) 10/28/21 04:05 Lymph # (Auto) 3.1 K/mm3 (1.2-5.4) 10/28/21 04:05 [place] # (Auto) 1.0 K/mm3 (0.0-0.8) H 10/28/21 04:05 Eos # (Auto) 0.1 K/mm3 (0.0-0.4) 10/28/21 04:05 Baso # (Auto) 0.1 K/mm3 (0.0-0.1) 10/28/21 04:05 Seg Neutrophils % 66.6 % (40.0-70.0) 10/28/21 04:05 Seg Neutrophils # 8.6 K/mm3 (1.8-7.7) H 10/28/21 04:05 PT 15.5 Sec. (12.2-14.9) H 10/27/21 15:08 INR 1.10 (0.87-1.13) 10/27/21 15:08 APTT 29.7 Sec. (24.2-36.6) 10/27/21 15:08 Sodium 135 mmol/L (137-145) L 10/28/21 04:05 Potassium 3.9 mmol/L (3.6-5.0) D 10/28/21 04:05 Chloride 102.1 mmol/L (98-107) 10/28/21 04:05 Carbon Dioxide 19 mmol/L (22-30) L 10/28/21 04:05 Anion Gap 18 mmol/L 10/28/21 04:05 BUN 10 mg/dL (7-17) 10/28/21 04:05 Creatinine 0.6 mg/dL (0.6-1.2) 10/28/21 04:05 Estimated GFR > 60 ml/min 10/28/21 04:05 BUN/Creatinine Ratio 17 % 10/28/21 04:05 Glucose 89 mg/dL (65-100) 10/28/21 04:05 Calcium 9.2 mg/dL (8.4-10.2) 10/28/21 04:05 Total Bilirubin 0.40 mg/dL (0.1-1.2) 10/28/21 04:05 AST 14 units/L (5-40) 10/28/21 04:05 ALT 7 units/L (7-56) 10/28/21 04:05 Alkaline Phosphatase 102 units/L (35-129) 10/28/21 04:05 Troponin T < 0.010 ng/mL (0.00-0.029) 10/27/21 15:08 Total Protein 7.8 g/dL (6.3-8.2) 10/28/21 04:05 Albumin 4.4 g/dL (3.9-5) 10/28/21 04:05 Albumin/Globulin Ratio 1.3 % 10/28/21 04:05 HCG, Qual Negative (Negative) 10/27/21 15:08 Active Medications - Current Medications Current Medications: Generic Name Dose Route Start Last Admin Trade Name Freq PRN Reason Stop Dose Admin Acetaminophen 650 mg 10/27/21 23:38 Acetaminophen 325 Mg Tab PO Q4H PRN Pain MILD(1-3)/Fever >100.5/ZARATE Aspirin 325 mg 10/28/21 18:00 Aspirin 325 Mg Tab PO QDAY [facility] Atorvastatin Calcium 40 mg 10/28/21 22:00 Atorvastatin 40 Mg Tab PO QHS [facility] Famotidine 20 mg 10/28/21 10:00 10/28/21 09:28 Famotidine 20 Mg Tab PO 20 mg BID [facility] Administration Heparin Sodium (Porcine) 5,000 unit 10/28/21 10:00 10/28/21 09:27 Heparin 5,000 Unit/1 Ml Vial SUB-Q 5,000 unit Q12HR [facility] Administration Hydromorphone HCl 0.5 mg 10/27/21 23:38 Hydromorphone 0.5 Mg/0.5 Ml Inj IV Q3H PRN Pain , Severe (7-10) Metoclopramide HCl 10 mg 10/27/21 23:38 Metoclopramide 10 Mg/2 Ml Inj IV Q6H PRN Nausea And Vomiting Morphine Sulfate 2 mg 10/27/21 23:38 Morphine 2 Mg/1 Ml Inj IV Q4H PRN Pain, Moderate (4-6) Ondansetron HCl 4 mg 10/27/21 23:38 Ondansetron 4 Mg/2 Ml Inj IV Q8H PRN Nausea And Vomiting Oxycodone/Acetaminophen 1 tab 10/27/21 23:38 Oxycodone /Acetaminophen 5-325mg Tab PO Q6H PRN Pain, Moderate (4-6) Sodium Chloride 10 ml 10/28/21 10:00 10/28/21 09:27 Sodium Chloride 0.9% 10 Ml Flush Syringe IV 10 ml BID [facility] Administration Sodium Chloride 10 ml 10/27/21 23:38 Sodium Chloride 0.9% 10 Ml Flush Syringe IV PRN PRN LINE FLUSH Nutrition/Malnutrition Assess - Dietary Evaluation Nutrition/Malnutrition Findings: Nutrition Notes Start: 10/28/21 11:23 Freq: Status: Active Protocol: Document 10/28/21 11:23 ANDRE (Rec: 10/28/21 11:24 ANDRE [id number]) Nutrition Notes Need for Assessment generated from: solution design and analysis manager Initial or Follow up Brief Note Subjective/Other Information Pt screened for skin risk, however, Giovanny score is 19. Will assess upon further consult or LOS. Burn Absent Trauma Absent Minimum of two criteria No
[2021-10-28] MEDS: ASPIRIN 325 MG TAB PO SCH (17:58)
--- NOTE | 2021-10-28 19:05 | Cat Scan Report ---
CT head/brain wo con INDICATION / CLINICAL INFORMATION: 51 years Female; 24 hr post tpa. TECHNIQUE: Routine CT head without contrast. All CT scans at this location are performed using CT dos e reduction for ALARA by means of automated exposure control. COMPARISON: The study is compared to the previous CT of 10/27/2021. FINDINGS: BRAIN / INTRACRANIAL CONTENTS: There is evolving a focus of decreased attenuation along the lateral r ight frontal lobe measuring approximately 2.0 cm transversely from the earlier CT. This finding would be a concerning for evolving infarct. The brain otherwise appears to demonstrate appropriate attenuation for age. The ventricular system is unchanged in size and configuration. There is no clear CT evidence of acute intracranial hemorrhage or significant mass effect. ORBITS: No significant abnormality of visualized orbits. SINUSES / MASTOIDS: No significant abnormality in the visualized paranasal sinuses or mastoid air angy ls. CRANIOCERVICAL JUNCTION: No significant abnormality. ADDITIONAL FINDINGS: None. IMPRESSION: 1. The findings are compatible with evolving infarct involving the lateral right frontal lobe as deta iled above. There is no CT evidence of acute intracranial hemorrhage. The study was specified as stat and dictated emergently at 5:39 PM Central standard time. Should be n oted that the study had already timed out on the PACS once noticed and the status may have been zavaleta ed. Signer Name: John Kearney MD Signed: 10/28/2021 7:01 PM Workstation Name: [id number]
--- NOTE | 2021-10-28 23:10 | Consultation ---
History of Present Illness Consult date: 10/28/21 Reason for Consult: Acute Ischemic Stroke Chief complaint: I have a headache. History of present illness: 51 yo right-handed female w/ gerd, who presents c/o hitting her head against a door as she was entering back into the building. She notes she fell down but did not hit her head/neck. Notes the residents helped get her into a couch where she laid down. Denies feeling weak on one side vs another. However, per ED/HPI, noted with left-sided (face/arm/leg w/ dysarthria) weakness. Patient received IV-tPA and her symptoms dramatically improved in less than an hour. currently, she notes a slight headache at the right frontoparietal region (no photo/phonosensitivity; no assoicated nausea/emesis; pain scale <5 out of 10). She denies any focal weakness at present. Past History Past Medical History: GERD Medications and Allergies Allergies Allergy/AdvReac Type Severity Reaction Status Date / Time No Known Allergies Allergy Verified 10/27/21 15:44 Home Medications Medication Instructions Recorded Confirmed Last Taken Type Omeprazole 10 mg PO DAILY PRN 10/28/21 10/28/21 Unknown History Active Meds: Active Medications Acetaminophen (Acetaminophen 325 Mg Tab) 650 mg PO Q4H PRN PRN Reason: Pain MILD(1-3)/Fever >100.5/ZARATE Aspirin (Aspirin 325 Mg Tab) 325 mg PO QDAY [facility] Last Admin: 10/28/21 17:58 Dose: 325 mg Atorvastatin Calcium (Atorvastatin 40 Mg Tab) 40 mg PO QHS [facility] Famotidine (Famotidine 20 Mg Tab) 20 mg PO BID [facility] Last Admin: 10/28/21 09:28 Dose: 20 mg Heparin Sodium (Porcine) (Heparin 5,000 Unit/1 Ml Vial) 5,000 unit SUB-Q Q12HR [facility] Last Admin: 10/28/21 09:27 Dose: 5,000 unit Hydromorphone HCl (Hydromorphone 0.5 Mg/0.5 Ml Inj) 0.5 mg IV Q3H PRN PRN Reason: Pain , Severe (7-10) Metoclopramide HCl (Metoclopramide 10 Mg/2 Ml Inj) 10 mg IV Q6H PRN PRN Reason: Nausea And Vomiting Morphine Sulfate (Morphine 2 Mg/1 Ml Inj) 2 mg IV Q4H PRN PRN Reason: Pain, Moderate (4-6) Ondansetron HCl (Ondansetron 4 Mg/2 Ml Inj) 4 mg IV Q8H PRN PRN Reason: Nausea And Vomiting Oxycodone/Acetaminophen (Oxycodone /Acetaminophen 5-325mg Tab) 1 tab PO Q6H PRN PRN Reason: Pain, Moderate (4-6) Sodium Chloride (Sodium Chloride 0.9% 10 Ml Flush Syringe) 10 ml IV BID [facility] Last Admin: 10/28/21 09:27 Dose: 10 ml Sodium Chloride (Sodium Chloride 0.9% 10 Ml Flush Syringe) 10 ml IV PRN PRN PRN Reason: LINE FLUSH Review of Systems All systems: negative (as per hpi;) Physical Examination - Vital Signs Vital Signs: Vital Signs Pulse Ox 100 10/27/21 14:41 - Physical Exam Narrative exam: Gen: nad, well-nourished; Head: normocephalic; Eyes: no gaze deviation; no ptosis; ENT: normal vocalization; CVS: warm and well-perfused; Pulm: no respiratory distress; GI: appears non-distended; Ext: no cyanosis appreciated at distal extremities; Skin: no acute rash at distal extremities; Heme: no pathologic ecchymosis appreciated at distal extremities; Neuro: alert, oriented to name, age, month, surroundings, no dysarthria, no aphasia, CN 2 - PERRL, visual oates grossly intact, CN 3, 4, 6 - EOMI, CN 5 - facial sensation symmetric to light touch, CN 7 - facial movement symmetric except slight left orolabial droop, CN 8 - hearing grossly intact, CN 9, 10 - uvula midline, CN 11 symmetric shoulder movement, CN 12 - tongue midline; Motor - at least 4/5 at all exts; Sensory - light touch symmetric, Cerebellar - fnf /hts intact, Gait - deferred secondary to fall risk; NIHSS (1a.) Level of Consciousness:0 (1b.) LOC Questions:0 (1c.) LOC Commands:0 (2.) Best Gaze:0 (3.) Visual:0 (4.) Facial Palsy:1 (5a.) Motor Arm, Left:0 (5b.) Motor Arm, Right:0 (6a.) Motor Leg, Left:0 (6b.) Motor Leg, Right:0 (7.) Limb Ataxia:0 (8.) Sensory:0 (9.) Best Language:0 (10.) Dysarthria:0 (11.) Extinction and Inattention:0 NIHSS Total Score: 1 Results - Laboratory Findings CBC and BMP: 10/28/21 04:05 10/28/21 04:05 Abnormal Lab Findings: Abnormal Labs 10/27/21 10/27/21 10/27/21 15:08 15:08 15:08 WBC 11.4 H Plt Count 454 H [place] % (Auto) 7.9 H [place] # (Auto) 0.9 H Seg Neutrophils # PT 15.5 H Sodium 133 L Chloride 97.8 L Carbon Dioxide 13 L 10/28/21 10/28/21 04:05 04:05 WBC 12.9 H Plt Count [place] % (Auto) 8.1 H Garrett # (Auto) 1.0 H Seg Neutrophils # 8.6 H PT Sodium 135 L Chloride Carbon Dioxide 19 L Assessment and Plan 51 yo right-handed female w/ gerd, who presents c/o hitting her head against a door as she was entering back into the building. She notes she fell down but did not hit her head/neck. Notes the residents helped get her into a couch where she laid down. Denies feeling weak on one side vs another. However, per ED/HPI, noted with left-sided (face/arm/leg w/ dysarthria) weakness. Patient received IV-tPA and her symptoms dramatically improved in less than an hour. 1. Acute Ischemic Idiopathic ([id number] vs. cardioembolic) Stroke: 24- hour mri brain is negative for ich, initiate ASA 325 mg PO qday, TTEcho and then GREG and long-term cardiac monitoring;, confirm LDL/HgbA1C/TSH/Covid-19/UDS/hypercoaguable profile, telemetry, NIHSS q4 hours; SBP goal <180 mmHg / DBP <105 mmHg (post-tnk protocol). Statin therapy for a goal LDL of 70, when patient passes swallow evaluation. PT/OT/ST/Swallow evaluation. Long-term risk-factor modification, including a strict diet/exercise regimen for secondary stroke prophylaxis. Stroke education prior to discharge. 2. Left Facial / Orolabial Droop - monitor clinically. 3. Right Carotid Disease - ipsilateral to the acute infarction; "web-like stenosis"; no signs of an ulcerated plaque on cus. 4. Closed Head Injury - unclear of patient's clinical history; possible closed head injury; monitor clinically. 5. Fall (initial encounter) - per patient; monitor clinically. Anthony Alvarez MD Neurology [id number]
[2021-10-29 05:19] LABS: Hematocrit 40.8 % (30.3-42.9); Hemoglobin 13.3 gm/dl (10.1-14.3); Mean Corpuscular HGB Conc 33 % (30-34); Mean Corpuscular Volume 89 fl (79-97); Platelet Count 398 K/mm3 (140-440); Red Blood Count 4.57 M/mm3 (3.65-5.03)
[2021-10-29 05:26] LABS: Blood Urea Nitrogen 11 mg/dL (7-17); Chol/HDL Ratio 3.78 %; Hemolysis Index 2
[2021-10-29 05:27] LABS: BUN/Creatinine Ratio 16
[2021-10-29] MEDS: FAMOTIDINE 20 MG TAB PO SCH ×2 (09:30→22:59)
[2021-10-29] MEDS: HEPARIN 5,000 UNIT/1 ML VIAL SUB-Q SCH ×2 (09:30→22:58)
[2021-10-29] MEDS: ASPIRIN 325 MG TAB PO SCH (09:30)
--- NOTE | 2021-10-29 12:06 | Progress Note ---
Assessment and Plan 51 y/o female with acute stroke, status post TPA, with resolution of presenting symptoms 10/29/21: Transfer out of unit. Will sign off. 1. Monitor for 24 hours post TPA admin 2. q1 hour neuro checks 3. BP control 4. Anticoagulation at the 24 hour caleb and transfer to floor 5. Will sign off once transferred out. Subjective Date of service: 10/29/21 Interval history: No acute events. Objective - Constitutional Vitals: Vital Signs - 12hr 10/29/21 10/29/21 10/29/21 01:00 02:00 03:00 Temperature Pulse Rate 71 72 68 Pulse Rate [ From Monitor] Respiratory 16 16 11 L Rate Respiratory Rate [right face] Blood Pressure 95/54 91/57 99/66 O2 Sat by Pulse 97 98 100 Oximetry 10/29/21 10/29/21 10/29/21 04:00 04:35 05:00 Temperature 97.8 F Pulse Rate 69 71 61 Pulse Rate [ 69 From Monitor] Respiratory 16 13 Rate Respiratory Rate [right face] Blood Pressure 93/57 99/55 O2 Sat by Pulse 99 99 Oximetry 10/29/21 10/29/21 10/29/21 06:01 07:00 07:51 Temperature Pulse Rate 80 68 Pulse Rate [ 75 From Monitor] Respiratory 15 21 17 Rate Respiratory Rate [right face] Blood Pressure 104/67 93/43 O2 Sat by Pulse 98 99 Oximetry 10/29/21 10/29/21 10/29/21 07:53 08:01 09:01 Temperature Pulse Rate 75 82 73 Pulse Rate [ From Monitor] Respiratory 19 21 Rate Respiratory 16 Rate [right face] Blood Pressure 92/49 114/49 O2 Sat by Pulse 98 100 Oximetry 10/29/21 10/29/21 10/29/21 09:42 10:01 11:01 Temperature 96.8 F L Pulse Rate 130 H 82 Pulse Rate [ From Monitor] Respiratory 31 H Rate Respiratory Rate [right face] Blood Pressure 114/49 114/49 O2 Sat by Pulse 66 L Oximetry 10/29/21 10/29/21 11:21 11:23 Temperature 98.2 F Pulse Rate 83 Pulse Rate [ 83 From Monitor] Respiratory 19 Rate Respiratory Rate [right face] Blood Pressure O2 Sat by Pulse 100 Oximetry - Labs CBC & Chem 7: 10/29/21 04:20 10/29/21 04:20 Labs: Abnormal lab results 10/29/21 Range/Units 04:20 Glucose 121 H (65-100) mg/dL Medications & Allergies - Medications Allergies/Adverse Reactions: Allergies No Known Allergies Allergy (Verified 10/27/21 15:44) Home Medications: Home Medications Medication Instructions Recorded Confirmed Last Taken Type Omeprazole 10 mg PO DAILY PRN 10/28/21 10/28/21 Unknown History Active Medications: Generic Name Dose Route Start Last Admin Trade Name Andrea PRN Reason Stop Dose Admin Acetaminophen 650 mg 10/27/21 23:38 Acetaminophen 325 Mg Tab PO Q4H PRN Pain MILD(1-3)/Fever >100.5/ZARATE Aspirin 325 mg 10/28/21 18:00 10/29/21 09:30 Aspirin 325 Mg Tab PO 325 mg QDAY PRESTON Administration Atorvastatin Calcium 40 mg 10/28/21 22:00 10/28/21 23:17 Atorvastatin 40 Mg Tab PO 40 mg QHS PRESTON Administration Famotidine 20 mg 10/28/21 10:00 10/29/21 09:30 Famotidine 20 Mg Tab PO 20 mg BID PRESTON Administration Heparin Sodium (Porcine) 5,000 unit 10/28/21 10:00 10/29/21 09:30 Heparin 5,000 Unit/1 Ml Vial SUB-Q 5,000 unit Q12HR PRESTON Administration Hydromorphone HCl 0.5 mg 10/27/21 23:38 Hydromorphone 0.5 Mg/0.5 Ml Inj IV Q3H PRN Pain , Severe (7-10) Metoclopramide HCl 10 mg 10/27/21 23:38 Metoclopramide 10 Mg/2 Ml Inj IV Q6H PRN Nausea And Vomiting Morphine Sulfate 2 mg 10/27/21 23:38 Morphine 2 Mg/1 Ml Inj IV Q4H PRN Pain, Moderate (4-6) Ondansetron HCl 4 mg 10/27/21 23:38 Ondansetron 4 Mg/2 Ml Inj IV Q8H PRN Nausea And Vomiting Oxycodone/Acetaminophen 1 tab 10/27/21 23:38 Oxycodone /Acetaminophen 5-325mg Tab PO Q6H PRN Pain, Moderate (4-6) Sodium Chloride 10 ml 10/28/21 10:00 10/29/21 09:30 Sodium Chloride 0.9% 10 Ml Flush Syringe IV 10 ml BID PRESTON Administration Sodium Chloride 10 ml 10/27/21 23:38 Sodium Chloride 0.9% 10 Ml Flush Syringe IV PRN PRN LINE FLUSH HEART Score - HEART Score Age: 45-65 Risk factors: No known risk factors Troponin: Troponin T < 0.010 ng/mL (0.00-0.029) 10/27/21 15:08 Troponin: < normal limit - Critical Actions Critical Actions: 0-3 pts:0.9-1.7%risk of adverse cardiac event.Candidate for discharge
--- NOTE | 2021-10-29 15:33 | Progress Note ---
Assessment and Plan Assessment and plan: This is a 51-year-old female with with HLD admitted with CVA s/p tPA Neuro: Acute CVA -Neurology consulted, appreciate recommendations -Avoid delirium -Reorientation as needed -Maintain sleep-wake cycle -aspiration/seizure precautions -As needed analgesia -Initial CT head showed no acute intracranial abnormality, no evidence of hemorrhage or large area of acute ischemia at this time -CTA head/neck shows short segment weblike stenosis of the right carotid bulb with a 50% narrowing is observed based on NASCET criteria, laryngeal area appears narrowed from the inferior margin of the hyoid bone to the level of the false cord -Carotid Doppler ultrasound showed less than 50% diameter stenosis in the bilateral internal carotid artery -CT brain 24 hours post tPA showed findings compatible with evolving infarct in the lateral right frontal lobe, no CT evidence of acute intracranial hemorrhage -MRI brain showed patchy areas of acute infarct involving right frontal to parietal cortical regions, component involving superior right insula -S/p tPA on 10/27 -CCM consulted, patient recommendations -MRI brain shows patchy areas of acute infarct involving right frontoparietal co rtical regions, component involving superior right insula -Lipid panel noted -Statin therapy -Aspirin -Goal blood pressure less than 160/90 -Neurochecks per protocol -PT/OT/ST consults -Avoid hypoglycemia, maintain normothermia Cardiac: Hyperlipidemia -Blood pressure monitoring per protocol -Statin -Echocardiogram pending Respiratory: NAD -Supplemental oxygen as needed -Pulmonary hygiene -SPO2 monitoring GI: Obesity -24 hours fluid balance +450 mL -PPI -Speech cleared for mechanical soft diet -BR: Colace : Hyponatremia, metabolic acidosis -Strict intake and output -Renally dose medications -Avoid nephrotoxic medications -Trend BMP ID: NAD -f/u blood culture -Monitor WBC and temperature curve Endo: NAD -Avoid hypoglycemia -Hemoglobin A1c pending Heme: Leukocytosis -Trend CBC -Transfuse hemoglobin less than 7 -Monitor for signs of bleeding -SCDs to BLE while in bed -Avoid chemical anticoagulation in setting of recent tPA administration The high probability of a clinically significant, sudden or life threatening deterioration of the [neuro] system(s) required my full and direct attention, intervention and personal management. The aggregate critical care time was [60] minutes. This time is in addition to time spent performing reported procedures but includes the following: [x] Data Review and interpretation [x] Patient assessment and monitoring of vital signs [x] Documentation [x] Medication orders and management Disposition Plan: transfer to floor Total Time Spent with Patient (Minutes): 60 History Interval history: This is a 51-year-old female with no past medical history presented to emergency department on 10/27 with left-sided weakness for 1 and half hours prior to presentation, inability to walk. Code stroke was initiated in the emergency department and telemetry neurology was consulted who recommended tPA. Patient admitted to ICU with consults to [facility] for 24-hour observation after tPA administration. Hospital course to date: 10/28: MRI brain completed, still with left-sided weakness, CT head scheduled for approximately 3:[address] head patient will be transferred to the floor and initiated on aspirin if no hemorrhage is present. 10/29: Patient had [address] head which showed no acute findings, MRI brain showed evolving CVA. Patient will be transferred to the floor. Hemoglobin A1c pending. Hospitalist Physical - Constitutional Vitals: Temp Pulse Resp BP Pulse Ox 98.2 F 72 13 104/78 98 10/29/21 11:23 10/29/21 13:00 10/29/21 14:00 10/29/21 15:01 10/29/21 15:01 General appearance: Present: no acute distress - EENT Eyes: Present: PERRL, EOM intact - Neck Neck: Present: supple, normal ROM - Respiratory Respiratory effort: normal Respiratory: bilateral: CTA - Cardiovascular Rhythm: regular Heart Sounds: Present: S1 & S2 - Extremities Extremities: no ischemia, pulses intact, pulses symmetrical, normal temperature, normal color Peripheral Pulses: within normal limits - Abdominal General gastrointestinal: soft, non-tender, non-distended, normal bowel sounds - Integumentary Integumentary: Present: warm, dry - Psychiatric Psychiatric: cooperative - Neurologic Neurologic: CNII-XII intact, no focal deficits, moves all extremities - Allied Health Allied health notes reviewed: nursing, PT, ST, OT, social work HEART Score - HEART Score Age: 45-65 Risk factors: No known risk factors Troponin: Troponin T < 0.010 ng/mL (0.00-0.029) 10/27/21 15:08 Troponin: < normal limit - Critical Actions Critical Actions: 0-3 pts:0.9-1.7%risk of adverse cardiac event.Candidate for discharge Results - Labs CBC & Chem 7: 10/29/21 04:20 10/29/21 04:20 Labs: Laboratory Last Values WBC 9.2 K/mm3 (4.5-11.0) 10/29/21 04:20 RBC 4.57 M/mm3 (3.65-5.03) 10/29/21 04:20 Hgb 13.3 gm/dl (10.1-14.3) 10/29/21 04:20 Hct 40.8 % (30.3-42.9) 10/29/21 04:20 MCV 89 fl (79-97) 10/29/21 04:20 MCH 29 pg (28-32) 10/29/21 04:20 MCHC 33 % (30-34) 10/29/21 04:20 RDW 14.0 % (13.2-15.2) 10/29/21 04:20 Plt Count 398 K/mm3 (140-440) 10/29/21 04:20 Lymph % (Auto) 24.0 % (13.4-35.0) 10/28/21 04:05 [place]iteside % (Auto) 8.1 % (0.0-7.3) H 10/28/21 04:05 Eos % (Auto) 0.8 % (0.0-4.3) 10/28/21 04:05 Baso % (Auto) 0.5 % (0.0-1.8) 10/28/21 04:05 Lymph # (Auto) 3.1 K/mm3 (1.2-5.4) 10/28/21 04:05 [place] # (Auto) 1.0 K/mm3 (0.0-0.8) H 10/28/21 04:05 Eos # (Auto) 0.1 K/mm3 (0.0-0.4) 10/28/21 04:05 Baso # (Auto) 0.1 K/mm3 (0.0-0.1) 10/28/21 04:05 Seg Neutrophils % 66.6 % (40.0-70.0) 10/28/21 04:05 Seg Neutrophils # 8.6 K/mm3 (1.8-7.7) H 10/28/21 04:05 PT 15.5 Sec. (12.2-14.9) H 10/27/21 15:08 INR 1.10 (0.87-1.13) 10/27/21 15:08 APTT 29.7 Sec. (24.2-36.6) 10/27/21 15:08 Sodium 139 mmol/L (137-145) 10/29/21 04:20 Potassium 3.9 mmol/L (3.6-5.0) 10/29/21 04:20 Chloride 105.1 mmol/L (98-107) 10/29/21 04:20 Carbon Dioxide 23 mmol/L (22-30) 10/29/21 04:20 Anion Gap 15 mmol/L 10/29/21 04:20 BUN 11 mg/dL (7-17) 10/29/21 04:20 Creatinine 0.7 mg/dL (0.6-1.2) 10/29/21 04:20 Estimated GFR > 60 ml/min 10/29/21 04:20 BUN/Creatinine Ratio 16 % 10/29/21 04:20 Glucose 121 mg/dL (65-100) H 10/29/21 04:20 Calcium 9.0 mg/dL (8.4-10.2) 10/29/21 04:20 Total Bilirubin 0.40 mg/dL (0.1-1.2) 10/28/21 04:05 AST 14 units/L (5-40) 10/28/21 04:05 ALT 7 units/L (7-56) 10/28/21 04:05 Alkaline Phosphatase 102 units/L (35-129) 10/28/21 04:05 Troponin T < 0.010 ng/mL (0.00-0.029) 10/27/21 15:08 Total Protein 7.8 g/dL (6.3-8.2) 10/28/21 04:05 Albumin 4.4 g/dL (3.9-5) 10/28/21 04:05 Albumin/Globulin Ratio 1.3 % 10/28/21 04:05 Triglycerides 82 mg/dL (2-149) 10/29/21 04:20 Cholesterol 178 mg/dL (50-199) 10/29/21 04:20 LDL Cholesterol Direct 103 mg/dL (50-130) 10/29/21 04:20 HDL Cholesterol 47 mg/dL (40-59) 10/29/21 04:20 Cholesterol/HDL Ratio 3.78 % 10/29/21 04:20 HCG, Qual Negative (Negative) 10/27/21 15:08 Active Medications - Current Medications Current Medications: Generic Name Dose Route Start Last Admin Trade Name Freq PRN Reason Stop Dose Admin Acetaminophen 650 mg 10/27/21 23:38 Acetaminophen 325 Mg Tab PO Q4H PRN Pain MILD(1-3)/Fever >100.5/ZARATE Aspirin 325 mg 10/28/21 18:00 10/29/21 09:30 Aspirin 325 Mg Tab PO 325 mg QDAY PRESTON Administration Atorvastatin Calcium 40 mg 10/28/21 22:00 10/28/21 23:17 Atorvastatin 40 Mg Tab PO 40 mg QHS PRESTON Administration Famotidine 20 mg 10/28/21 10:00 10/29/21 09:30 Famotidine 20 Mg Tab PO 20 mg BID PRESTON Administration Heparin Sodium (Porcine) 5,000 unit 10/28/21 10:00 10/29/21 09:30 Heparin 5,000 Unit/1 Ml Vial SUB-Q 5,000 unit Q12HR PRESTON Administration Hydromorphone HCl 0.5 mg 10/27/21 23:38 Hydromorphone 0.5 Mg/0.5 Ml Inj IV Q3H PRN Pain , Severe (7-10) Metoclopramide HCl 10 mg 10/27/21 23:38 Metoclopramide 10 Mg/2 Ml Inj IV Q6H PRN Nausea And Vomiting Morphine Sulfate 2 mg 10/27/21 23:38 Morphine 2 Mg/1 Ml Inj IV Q4H PRN Pain, Moderate (4-6) Ondansetron HCl 4 mg 10/27/21 23:38 Ondansetron 4 Mg/2 Ml Inj IV Q8H PRN Nausea And Vomiting Oxycodone/Acetaminophen 1 tab 10/27/21 23:38 Oxycodone /Acetaminophen 5-325mg Tab PO Q6H PRN Pain, Moderate (4-6) Sodium Chloride 10 ml 10/28/21 10:00 10/29/21 09:30 Sodium Chloride 0.9% 10 Ml Flush Syringe IV 10 ml BID PRESTON Administration Sodium Chloride 10 ml 10/27/21 23:38 Sodium Chloride 0.9% 10 Ml Flush Syringe IV PRN PRN LINE FLUSH Nutrition/Malnutrition Assess - Dietary Evaluation Nutrition/Malnutrition Findings: Nutrition Notes Start: 10/28/21 11:23 Freq: Status: Active Protocol: Document 10/28/21 11:23 ANDRE (Rec: 10/28/21 11:24 ANDRE [id number]) 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 Will assess upon further consult or LOS. Burn Absent Trauma Absent Minimum of two criteria No
[2021-10-29] MEDS: HYDROmorphone 0.5 MG/0.5 ML INJ IV PRN (21:00)
[2021-10-30] MEDS: HYDROmorphone 0.5 MG/0.5 ML INJ IV PRN (01:30)
--- NOTE | 2021-10-30 09:07 | Progress Note ---
Assessment and Plan Assessment and plan: Interval history: This is a 51-year-old female with no past medical history presented to emergency department on 10/27 with left-sided weakness for 1 and half hours prior to prese ntation, inability to walk. Code stroke was initiated in the emergency department and telemetry neurology was consulted who recommended tPA. Patient admitted to ICU with consults to [facility] for 24-hour observation after tPA administration. Hospital course to date: 10/28: MRI brain completed, still with left-sided weakness, CT head scheduled for approximately 3:[address] head patient will be transferred to the floor and initiated on aspirin if no hemorrhage is present. 10/29: Patient had [address] head which showed no acute findings, MRI brain showed evolving CVA. Patient will be transferred to the floor. Hemoglobin A1c pending. 10/30: Neuro: Acute CVA -Neurology consulted, appreciate recommendations -Avoid delirium -Reorientation as needed -Maintain sleep-wake cycle -aspiration/seizure precautions -As needed analgesia -Initial CT head showed no acute intracranial abnormality, no evidence of hemorrhage or large area of acute ischemia at this time -CTA head/neck shows short segment weblike stenosis of the right carotid bulb with a 50% narrowing is observed based on NASCET criteria, laryngeal area appears narrowed from the inferior margin of the hyoid bone to the level of the false cord -Carotid Doppler ultrasound showed less than 50% diameter stenosis in the bilateral internal carotid artery -CT brain 24 hours post tPA showed findings compatible with evolving infarct in the lateral right frontal lobe, no CT evidence of acute intracranial hemorrhage -MRI brain showed patchy areas of acute infarct involving right frontal to parietal cortical regions, component involving superior right insula -S/p tPA on 10/27 -[facility] consulted, patient recommendations -MRI brain shows patchy areas of acute infarct involving right frontoparietal cortical regions, component involving superior right insula -Lipid panel noted -Statin therapy -Aspirin -Goal blood pressure less than 160/90 -Neurochecks per protocol -PT/OT/ST consults -Avoid hypoglycemia, maintain normothermia Cardiac: Hyperlipidemia -Blood pressure monitoring per protocol -Statin -Echocardiogram pending Respiratory: NAD -Supplemental oxygen as needed -Pulmonary hygiene -SPO2 monitoring GI: Obesity -24 hours fluid balance +450 mL -PPI -Speech cleared for mechanical soft diet -BR: Colace : Hyponatremia, metabolic acidosis -Strict intake and output -Renally dose medications -Avoid nephrotoxic medications -Trend BMP ID: NAD -f/u blood culture -Monitor WBC and temperature curve Endo: NAD -Avoid hypoglycemia -Hemoglobin A1c pending Heme: Leukocytosis -Trend CBC -Transfuse hemoglobin less than 7 -Monitor for signs of bleeding -SCDs to BLE while in bed -Avoid chemical anticoagulation in setting of recent tPA administration Hospitalist Physical - Physical exam Narrative exam: Physical Exam: VITAL SIGNS: Reviewed. GENERAL: The patient appears normally developed, Vital signs as documented. HEAD: No signs of head trauma. EYES: Pupils are equal. Extraocular motions intact. EARS: Hearing grossly intact. MOUTH: Oropharynx is normal. NECK: No adenopathy, no JVD. CHEST: Chest with clear breath sounds bilaterally. No wheezes, rales, or rhonchi. CARDIAC: Regular rate and rhythm. S1 and S2, without murmurs, gallops, or rubs. VASCULAR: No Edema. Peripheral pulses normal and equal in all extremities. ABDOMEN: Soft, non tender and non distended. No rebound or guarding, and no masses palpated. Bowel Sounds normal. MUSCULOSKELETAL: Good range of motion of all major joints. Extremities without clubbing, cyanosis or edema. NEUROLOGIC EXAM: Alert and oriented x 4. no focal sensory or strength deficits. PSYCHIATRIC: Mood normal. SKIN: detail exam as documented in skin assessment - Constitutional Vitals: Temp Pulse Resp BP Pulse Ox 97.6 F 76 18 105/74 98 10/30/21 04:12 10/30/21 04:12 10/30/21 04:16 10/30/21 04:12 10/30/21 04:12 General appearance: Present: no acute distress HEART Score - HEART Score Age: 45-65 Risk factors: No known risk factors Troponin: Troponin T < 0.010 ng/mL (0.00-0.029) 10/27/21 15:08 Troponin: < normal limit - Critical Actions Critical Actions: 0-3 pts:0.9-1.7%risk of adverse cardiac event.Candidate for discharge Results - Labs CBC & Chem 7: 10/29/21 04:20 10/29/21 04:20 Labs: Laboratory Last Values WBC 9.2 K/mm3 (4.5-11.0) 10/29/21 04:20 RBC 4.57 M/mm3 (3.65-5.03) 10/29/21 04:20 Hgb 13.3 gm/dl (10.1-14.3) 10/29/21 04:20 Hct 40.8 % (30.3-42.9) 10/29/21 04:20 MCV 89 fl (79-97) 10/29/21 04:20 MCH 29 pg (28-32) 10/29/21 04:20 MCHC 33 % (30-34) 10/29/21 04:20 RDW 14.0 % (13.2-15.2) 10/29/21 04:20 Plt Count 398 K/mm3 (140-440) 10/29/21 04:20 Lymph % (Auto) 24.0 % (13.4-35.0) 10/28/21 04:05 [place] % (Auto) 8.1 % (0.0-7.3) H 10/28/21 04:05 Eos % (Auto) 0.8 % (0.0-4.3) 10/28/21 04:05 Baso % (Auto) 0.5 % (0.0-1.8) 10/28/21 04:05 Lymph # (Auto) 3.1 K/mm3 (1.2-5.4) 10/28/21 04:05 [place] # (Auto) 1.0 K/mm3 (0.0-0.8) H 10/28/21 04:05 Eos # (Auto) 0.1 K/mm3 (0.0-0.4) 10/28/21 04:05 Baso # (Auto) 0.1 K/mm3 (0.0-0.1) 10/28/21 04:05 Seg Neutrophils % 66.6 % (40.0-70.0) 10/28/21 04:05 Seg Neutrophils # 8.6 K/mm3 (1.8-7.7) H 10/28/21 04:05 PT 15.5 Sec. (12.2-14.9) H 10/27/21 15:08 INR 1.10 (0.87-1.13) 10/27/21 15:08 APTT 29.7 Sec. (24.2-36.6) 10/27/21 15:08 Sodium 139 mmol/L (137-145) 10/29/21 04:20 Potassium 3.9 mmol/L (3.6-5.0) 10/29/21 04:20 Chloride 105.1 mmol/L (98-107) 10/29/21 04:20 Carbon Dioxide 23 mmol/L (22-30) 10/29/21 04:20 Anion Gap 15 mmol/L 10/29/21 04:20 BUN 11 mg/dL (7-17) 10/29/21 04:20 Creatinine 0.7 mg/dL (0.6-1.2) 10/29/21 04:20 Estimated GFR > 60 ml/min 10/29/21 04:20 BUN/Creatinine Ratio 16 % 10/29/21 04:20 Glucose 121 mg/dL (65-100) H 10/29/21 04:20 Calcium 9.0 mg/dL (8.4-10.2) 10/29/21 04:20 Total Bilirubin 0.40 mg/dL (0.1-1.2) 10/28/21 04:05 AST 14 units/L (5-40) 10/28/21 04:05 ALT 7 units/L (7-56) 10/28/21 04:05 Alkaline Phosphatase 102 units/L (35-129) 10/28/21 04:05 Troponin T < 0.010 ng/mL (0.00-0.029) 10/27/21 15:08 Total Protein 7.8 g/dL (6.3-8.2) 10/28/21 04:05 Albumin 4.4 g/dL (3.9-5) 10/28/21 04:05 Albumin/Globulin Ratio 1.3 % 10/28/21 04:05 Triglycerides 82 mg/dL (2-149) 10/29/21 04:20 Cholesterol 178 mg/dL (50-199) 10/29/21 04:20 LDL Cholesterol Direct 103 mg/dL (50-130) 10/29/21 04:20 HDL Cholesterol 47 mg/dL (40-59) 10/29/21 04:20 Cholesterol/HDL Ratio 3.78 % 10/29/21 04:20 HCG, Qual Negative (Negative) 10/27/21 15:08 Active Medications - Current Medications Current Medications: Generic Name Dose Route Start Last Admin Trade Name Freq PRN Reason Stop Dose Admin Acetaminophen 650 mg 10/27/21 23:38 Acetaminophen 325 Mg Tab PO Q4H PRN Pain MILD(1-3)/Fever >100.5/ZARATE Aspirin 325 mg 10/28/21 18:00 10/29/21 09:30 Aspirin 325 Mg Tab PO 325 mg QDAY PRESTON Administration Atorvastatin Calcium 40 mg 10/28/21 22:00 10/29/21 22:00 Atorvastatin 40 Mg Tab PO 40 mg QHS PRESTON Administration Famotidine 20 mg 10/28/21 10:00 10/29/21 22:59 Famotidine 20 Mg Tab PO 20 mg BID PRESTON Administration Heparin Sodium (Porcine) 5,000 unit 10/28/21 10:00 10/29/21 22:58 Heparin 5,000 Unit/1 Ml Vial SUB-Q 5,000 unit Q12HR PRESTON Administration Hydromorphone HCl 0.5 mg 10/27/21 23:38 10/30/21 01:30 Hydromorphone 0.5 Mg/0.5 Ml Inj IV 0.5 mg Q3H PRN Administration Pain , Severe (7-10) Metoclopramide HCl 10 mg 10/27/21 23:38 Metoclopramide 10 Mg/2 Ml Inj IV Q6H PRN Nausea And Vomiting Morphine Sulfate 2 mg 10/27/21 23:38 10/30/21 04:16 Morphine 2 Mg/1 Ml Inj IV 2 mg Q4H PRN Administration Pain, Moderate (4-6) Ondansetron HCl 4 mg 10/27/21 23:38 Ondansetron 4 Mg/2 Ml Inj IV Q8H PRN Nausea And Vomiting Oxycodone/Acetaminophen 1 tab 10/27/21 23:38 10/29/21 20:35 Oxycodone /Acetaminophen 5-325mg Tab PO 1 tab Q6H PRN Administration Pain, Moderate (4-6) Sodium Chloride 10 ml 10/28/21 10:00 10/30/21 05:59 Sodium Chloride 0.9% 10 Ml Flush Syringe IV Not Given BID PRESTON Sodium Chloride 10 ml 10/27/21 23:38 Sodium Chloride 0.9% 10 Ml Flush Syringe IV PRN PRN LINE FLUSH Nutrition/Malnutrition Assess - Dietary Evaluation Nutrition/Malnutrition Findings: Nutrition Notes Start: 10/28/21 11:23 Freq: Status: Active Protocol: Document 10/28/21 11:23 NHALL (Rec: 10/28/21 11:24 ANDRE [id number]) 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 Will assess upon further consult or LOS. Burn Absent Trauma Absent Minimum of two criteria No
--- NOTE | 2021-10-30 09:44 | Progress Note ---
Assessment and Plan 51 y/o female with acute stroke, status post TPA, with resolution of presenting symptoms 10/30/21: Will sign off. Call if questions. 10/29/21: Transfer out of unit. Will sign off. 1. Monitor for 24 hours post TPA admin 2. q1 hour neuro checks 3. BP control 4. Anticoagulation at the 24 hour caleb and transfer to floor 5. Will sign off once transferred out. Subjective Date of service: 10/30/21 Interval history: Successful transfer out of unit. no pulm issues. Objective - Constitutional Vitals: Vital Signs - 12hr 10/29/21 10/30/21 10/30/21 22:00 00:00 02:00 Temperature 97.7 F 98.1 F Pulse Rate 99 H Pulse Rate [ 79 From Monitor] Pulse Rate [ 87 Radial] Respiratory 19 Rate Blood Pressure 104/71 O2 Sat by Pulse 100 Oximetry 10/30/21 10/30/21 10/30/21 04:00 04:12 04:16 Temperature 97.6 F Pulse Rate 76 Pulse Rate [ 79 From Monitor] Pulse Rate [ Radial] Respiratory 19 16 18 Rate Blood Pressure 105/74 O2 Sat by Pulse 100 98 Oximetry 10/30/21 10/30/21 08:13 09:30 Temperature 97.5 F L Pulse Rate 98 H Pulse Rate [ From Monitor] Pulse Rate [ Radial] Respiratory 18 Rate Blood Pressure 103/75 O2 Sat by Pulse 100 Oximetry - Labs CBC & Chem 7: 10/29/21 04:20 10/29/21 04:20 Medications & Allergies - Medications Allergies/Adverse Reactions: Allergies No Known Allergies Allergy (Verified 10/27/21 15:44) Home Medications: Home Medications Medication Instructions Recorded Confirmed Last Taken Type Omeprazole 10 mg PO DAILY PRN 10/28/21 10/28/21 Unknown History Active Medications: Generic Name Dose Route Start Last Admin Trade Name Freq PRN Reason Stop Dose Admin Acetaminophen 650 mg 10/27/21 23:38 Acetaminophen 325 Mg Tab PO Q4H PRN Pain MILD(1-3)/Fever >100.5/ZARATE Aspirin 325 mg 10/28/21 18:00 10/29/21 09:30 Aspirin 325 Mg Tab PO 325 mg QDAY PRESTON Administration Atorvastatin Calcium 40 mg 10/28/21 22:00 10/29/21 22:00 Atorvastatin 40 Mg Tab PO 40 mg QHS PRESTON Administration Famotidine 20 mg 10/28/21 10:00 10/29/21 22:59 Famotidine 20 Mg Tab PO 20 mg BID PRESTON Administration Heparin Sodium (Porcine) 5,000 unit 10/28/21 10:00 10/29/21 22:58 Heparin 5,000 Unit/1 Ml Vial SUB-Q 5,000 unit Q12HR PRESTON Administration Hydromorphone HCl 0.5 mg 10/27/21 23:38 10/30/21 01:30 Hydromorphone 0.5 Mg/0.5 Ml Inj IV 0.5 mg Q3H PRN Administration Pain , Severe (7-10) Metoclopramide HCl 10 mg 10/27/21 23:38 Metoclopramide 10 Mg/2 Ml Inj IV Q6H PRN Nausea And Vomiting Morphine Sulfate 2 mg 10/27/21 23:38 10/30/21 04:16 Morphine 2 Mg/1 Ml Inj IV 2 mg Q4H PRN Administration Pain, Moderate (4-6) Ondansetron HCl 4 mg 10/27/21 23:38 Ondansetron 4 Mg/2 Ml Inj IV Q8H PRN Nausea And Vomiting Oxycodone/Acetaminophen 1 tab 10/27/21 23:38 10/29/21 20:35 Oxycodone /Acetaminophen 5-325mg Tab PO 1 tab Q6H PRN Administration Pain, Moderate (4-6) Sodium Chloride 10 ml 10/28/21 10:00 10/30/21 05:59 Sodium Chloride 0.9% 10 Ml Flush Syringe IV Not Given BID PRESTON Sodium Chloride 10 ml 10/27/21 23:38 Sodium Chloride 0.9% 10 Ml Flush Syringe IV PRN PRN LINE FLUSH HEART Score - HEART Score Age: 45-65 Risk factors: No known risk factors Troponin: Troponin T < 0.010 ng/mL (0.00-0.029) 10/27/21 15:08 Troponin: < normal limit - Critical Actions Critical Actions: 0-3 pts:0.9-1.7%risk of adverse cardiac event.Candidate for discharge
[2021-10-30] MEDS: ASPIRIN 325 MG TAB PO SCH (09:56)
[2021-10-30] MEDS: HEPARIN 5,000 UNIT/1 ML VIAL SUB-Q SCH (09:56)
[2021-10-30] MEDS: FAMOTIDINE 20 MG TAB PO SCH (09:56)
[2021-10-30 12:10] VITALS: BP 112/66
--- NOTE | 2021-10-30 14:49 | Discharge Summary ---
Providers - Providers Date of Admission: 10/27/21 23:38 Date of discharge: 10/30/21 Attending physician: AARON REYES MD 10/27/21 Consult to Physician [CONS] Routine Comment: called office/ tiffany Consulting Provider: CUONG HOFFMANN Physician Instructions: Reason For Exam: Acute CVA 10/27/21 16:24 Speech Therapy Evaluation and Treat [CONS] Stat Reason For Exam: stroke alert 10/27/21 23:38 Consult to Physician [CONS] Routine Comment: Consulting Provider: DANO TALAMANTES Physician Instructions: Reason For Exam: Acute CVA s/p tPA 10/27/21 23:44 Occupational Therapy Evaluate and Treat [CONS] Routine Comment: Reason For Exam: Neuro deficits Physical Therapy Evaluation and Treat [CONS] Routine Comment: Reason For Exam: Neuro deficits Primary care physician: COURT ADMINISTRATOR Hospitalization Reason for admission: weakness Condition: Stable Hospital course: Interval history: This is a 51-year-old female with no past medical history presented to emergency department on 10/27 with left-sided weakness for 1 and half hours prior to presentation, inability to walk. Code stroke was initiated in the emergency department and telemetry neurology was consulted who recommended tPA. Patient admitted to ICU with consults to [facility] for 24-hour observation after tPA admini stration. Hospital course to date: 10/28: MRI brain completed, still with left-sided weakness, CT head scheduled for approximately 3:[address] head patient will be transferred to the floor and initiated on aspirin if no hemorrhage is present. 10/29: Patient had [address] head which showed no acute findings, MRI brain showed evolving CVA. Patient will be transferred to the floor. Hemoglobin A1c pending. history of GI bleed (ulcer with hemorrhage) in past per discussion. Will only discharge on aspirin for antiplatelt therapy. 10/30: Patient will be discharge today. No needs per PT/OT. Plan for discharge today to home. Rx for atorvastatin and aspirin sent to pharmacy. Neuro: Acute CVA -Neurology consulted, appreciate recommendations -Avoid delirium -Reorientation as needed -Maintain sleep-wake cycle -aspiration/seizure precautions -As needed analgesia -Initial CT head showed no acute intracranial abnormality, no evidence of hemorrhage or large area of acute ischemia at this time -CTA head/neck shows short segment weblike stenosis of the right carotid bulb with a 50% narrowing is observed based on NASCET criteria, laryngeal area appears narrowed from the inferior margin of the hyoid bone to the level of the false cord -Carotid Doppler ultrasound showed less than 50% diameter stenosis in the bilateral internal carotid artery -CT brain 24 hours post tPA showed findings compatible with evolving infarct in the lateral right frontal lobe, no CT evidence of acute intracranial hemorrhage -MRI brain showed patchy areas of acute infarct involving right frontal to parietal cortical regions, component involving superior right insula -S/p tPA on 10/27 -CCM consulted, patient recommendations -MRI brain shows patchy areas of acute infarct involving right frontoparietal cortical regions, component involving superior right insula -Lipid panel noted -Statin therapy -Aspirin -Goal blood pressure less than 160/90 -Neurochecks per protocol -PT/OT/ST consults -Avoid hypoglycemia, maintain normothermia Cardiac: Hyperlipidemia -Blood pressure monitoring per protocol -Statin -Echocardiogram pending Respiratory: NAD -Supplemental oxygen as needed -Pulmonary hygiene -SPO2 monitoring GI: Obesity -24 hours fluid balance +450 mL -PPI -Speech cleared for mechanical soft diet -BR: Colace : Hyponatremia, metabolic acidosis -Strict intake and output -Renally dose medications -Avoid nephrotoxic medications -Trend BMP ID: NAD -f/u blood culture -Monitor WBC and temperature curve Endo: NAD -Avoid hypoglycemia -Hemoglobin A1c pending Heme: Leukocytosis -Trend CBC -Transfuse hemoglobin less than 7 -Monitor for signs of bleeding -SCDs to BLE while in bed -Avoid chemical anticoagulation in setting of recent tPA administration Disposition: 01 HOME / SELF CARE / HOMELESS Final Discharge Diagnosis (Prints w/discharge instructions): acute ischemic stroke Time spent for discharge: 35 Core Measure Documentation - Palliative Care Palliative Care/ Comfort Measures: Not Applicable - Core Measures Any of the following diagnoses?: stroke - Stroke Discharge Requirements Statin for LDL = or >70 mg/dl on DC: Yes Anticoag for atrial fib/atrial flutter: No Reason for no anticoag for AF/F on DC: Medical Contraindication Antithrombotic for ischemic stroke: Yes Exam - Physical Exam Narrative exam: Physical Exam: VITAL SIGNS: Reviewed. GENERAL: The patient appears normally developed, Vital signs as documented. HEAD: No signs of head trauma. EYES: Pupils are equal. Extraocular motions intact. EARS: Hearing grossly intact. MOUTH: Oropharynx is normal. NECK: No adenopathy, no JVD. CHEST: Chest with clear breath sounds bilaterally. No wheezes, rales, or rhonchi. CARDIAC: Regular rate and rhythm. S1 and S2, without murmurs, gallops, or rubs. VASCULAR: No Edema. Peripheral pulses normal and equal in all extremities. ABDOMEN: Soft, non tender and non distended. No rebound or guarding, and no masses palpated. Bowel Sounds normal. MUSCULOSKELETAL: Good range of motion of all major joints. Extremities without clubbing, cyanosis or edema. NEUROLOGIC EXAM: Alert and oriented x 4. no focal sensory or strength deficits. PSYCHIATRIC: Mood normal. SKIN: detail exam as documented in skin assessment - Constitutional Vitals: Temp Pulse Resp BP Pulse Ox 98.8 F 80 15 112/66 98 10/30/21 12:07 10/30/21 14:00 10/30/21 12:10 10/30/21 12:07 10/30/21 12:10 Plan Activity: no restrictions Diet: low fat, low cholesterol, low salt Follow up with: PRIMARY CAREMD [Primary Care Provider] - 7 Days
== END 2021-10-30 16:30 | disposition home or self-care (01) | DRG 62 ==
LOC: ED 14:41 → CC1 23:38 → 4A 10-29 17:34
PROVIDERS: ADMIT Internal Medicine; ATTEND Internal Medicine
DX: I63.9 Cerebral infarction, unspecified (principal); E87.2 Acidosis; E87.1 Hypo-osmolality and hyponatremia; E78.2 Mixed hyperlipidemia; E66.9 Obesity, unspecified; Z68.34 Body mass index [BMI] 34.0-34.9, adult; D72.829 Elevated white blood cell count, unspecified; K21.9 Gastro-esophageal reflux disease without esophagitis; W18.30XA Fall on same level, unspecified, initial encounter; Y93.9 Activity, unspecified; Y92.89 Other specified places as the place of occurrence of the external cause; Y99.8 Other external cause status; S09.90XA Unspecified injury of head, initial encounter
CPT/HCPCS: 36415; 70450; 70496; 70498; 70551; 71045; 80048; 80053; 80061; 84484; 84703; 85025; 85027; 85610; 85730; 93005; 93306; 93880; G0378; C8929; J1644; J2270; J2997; Q9967